=== PATIENT | female | born 1980 | race Caucasian/White ===

== ENCOUNTER 2025-04-15 15:46 | Emergency (ER) | payer OTHER | END 2025-04-15 17:56 | disposition home or self-care (01) | LOC: JP.ED 15:46 | DX: R07.89 Other chest pain (principal); F17.200 Nicotine dependence, unspecified, uncomplicated; Z79.899 Other long term (current) drug therapy | CPT/HCPCS: 36415; 71046; 71046-26; 84484; 99285 ==